=== PATIENT | female | born 1940 | race Caucasian/White ===

== ENCOUNTER → 2017-08-21 | Outpatient (CLI) | payer MEDICARE ==
--- NOTE | 2017-08-21 11:17 | BD ---
EXAMINATION TYPE: MG DEXA axial skeleton. DATE OF EXAM: 08/21/2017 COMPARISON: NONE CLINICAL HISTORY: Postmenopausal female. Osteoporosis screening. Height: 60 Weight: 124 FRAX RISK QUESTIONS: Alcohol (3 or more units per day): NO Family History (Parent hip fracture): no Glucocorticoids (More than 3mos): no (Ex: prednisone, prednisolone, methylprednisolone, dexamethasone, and hydrocortisone). History of Fracture in Adulthood: none known Secondary Osteoporosis: 1. Type 1 Diabetes: no 2. Hyperthyroidism: no 3. Menopause before 45: insure 4. Malnutrition: no 5. Chronic liver disease: no Rheumatoid Arthritis: maybe Current Tobacco Use: no RISK FACTORS HISTORY OF: Surgery to Spine/Hip(right/left)/Wrist (right/left): no Family History of Osteoporosis: unknown Active: no Diet low in dairy products/other sources of calcium: yes Postmenopausal woman: yes Lost more than 2 inches in height since high school: yes Frequent falls: yes Poor Health: yes Hyperparathyroidism: no Adrenal Insufficiency: no MEDICATIONS: no medication list available/ pt doesn't know/caregiver didn't have list Additional History: EXAM MEASUREMENTS: Bone mineral densitometry was performed using the [employer] System. Bone mineral density as measured about the Lumbar spine is: ----- L1-L4(G/cm2): 0.945 T Score Values are as follows: ----- L2: -2.0 ----- L3: -1.8 ----- L4: -1.7 ----- L1-L4: -2.0 Bone mineral density baseline Bone mineral density about the R hip (g/cm2): 0.704 Bone mineral density about the L hip (g/cm2): 0.704 T Score values are as follows: -----R Neck: -2.4 -----L Neck: -2.4 -----R Total: -2.8 -----L Total: -2.9 Bone mineral density : baseline IMPRESSION: Osteoporosis (T Score less than -2.5) as noted by T Score values at the bilateral hips There is increased fracture risk and therapy is usually indicated based on age. Re-Screen 1-2 years. NOTE: T-SCORE=SD OF THE YOUNG ADULT MEAN.
== END | disposition home or self-care (01) ==
LOC: RADBDWWP 08:33 → EEVIPCON 08:40
PROVIDERS: ATTEND Family Medicine
DX: M85.851 Other specified disorders of bone density and structure, right thigh (principal); M85.852 Other specified disorders of bone density and structure, left thigh; M19.90 Unspecified osteoarthritis, unspecified site
CPT/HCPCS: 77080

== ENCOUNTER 2019-01-14 11:20 | Emergency (ER) | payer MEDICARE ==
[2019-01-14 12:35] LABS: Basophils % (A) 1 %; Eosinophils # (A) 0.1 k/uL (0-0.7); Eosinophils % (A) 1 %; Lymphocytes # (A) 0.8 k/uL (1.0-4.8); Lymphocytes % (A) 17 %; MCH 29.9 pg (25.0-35.0); MCHC 32.5 g/dL (31.0-37.0); Mean Platelet Volume 7.9; Monocytes # (A) 0.2 k/uL (0-1.0); Monocytes % (A) 3 %; Neutrophils # (A) 3.6 k/uL (1.3-7.7); Neutrophils % (A) 77 %; Platelet Count 246 k/uL (150-450); RBC 4.67 m/uL (3.80-5.40); RDW 14.6 % (11.5-15.5); WBC 4.7 k/uL (3.8-10.6)
[2019-01-14 12:46] LABS: Albumin 4.5 g/dL (3.5-5.0); Calcium 10.1 mg/dL (8.4-10.2); Potassium 4.6 mmol/L (3.5-5.1); Total Bilirubin 0.7 mg/dL (0.2-1.3); Total Protein 7.9 g/dL (6.3-8.2)
--- NOTE | 2019-01-14 12:57 | XR ---
EXAMINATION TYPE: XR KUB DATE OF EXAM: 01/14/2019 12:42 PM CLINICAL HISTORY: Abdominal pain TECHNIQUE: Single upright image of the abdomen is obtained. COMPARISON: None. FINDINGS: Scattered gas is seen in nondilated small bowel loops. Gas and fecal material is seen in no ndilated colon. Severe fecal stasis is seen with colonic fecal burden most pronounced in the right he micolon and rectosigmoid junction. The lung bases are clear and the osseous structures are intact. Th ere is generalized osseous demineralization. Mild levoscoliosis of the thoracolumbar junction is seen with dextroscoliosis of the lumbosacral junction. Moderate degenerative changes of the femoral aceta bular joints are present as joint space narrowing and acetabular sclerosis. IMPRESSION: Severe fecal stasis in an overall nonobstructive bowel gas pattern.
--- NOTE | 2019-01-14 13:47 | ED ---
General Adult HPI - General Chief complaint: Abdominal Pain Stated complaint: constipation Time Seen by Provider: 01/14/19 11:40 Source: patient, family Mode of arrival: wheelchair - History of Present Illness Initial comments: 78 year old female advanced dementia as well as Parkinson's presenting today with guarding for chief complaint constipation. They state the patient has had headaches in a bowel movement in over a month. He states she's had small ones here and there. They deny patient grimacing or complaining of pain. Patient appears well upon arrival. Family practitioner was concerned about structural and was told to present to the emergency department for further evaluation. Upon arrival patient's vital signs within acceptable limits. No other complaints from guardian. No vomiting noted or fevers. - Related Data Previous Rx's Medication Instructions Recorded Glycerin Adult Suppository 1 each RECTAL DAILY 30 Days #30 01/14/19 supp Polyethylene Glycol 3350 [Miralax] 17 gm PO DAILY 30 Days #30 packet 01/14/19 Allergies Allergy/AdvReac Type Severity Reaction Status Date / Time No Known Allergies Allergy Verified 01/14/19 11:31 Review of Systems ROS Statement: Those systems with pertinent positive or pertinent negative responses have been documented in the HPI. ROS Other: All systems not noted in ROS Statement are negative. Past Medical History Past Medical History: Dementia Additional Past Medical History / Comment(s): frandy History of Any Multi-Drug Resistant Organisms: None Reported Past Surgical History: No Surgical Hx Reported Smoking Status: Former smoker Past Alcohol Use History: None Reported Past Drug Use History: None Reported General Exam - General Exam Comments Initial Comments: General: The patient is awake and alert, in no distress, and does not appear acutely ill. Eye: +3 mm pupils are equal, round and reactive to light, extra-ocular movements are intact. No nystagmus. There is normal conjunctiva bilaterally. No signs of icterus. Ears, nose, mouth and throat: There are moist mucous membranes and no oral lesions. Neck: The neck is supple, there is no tenderness or JVD. Cardiovascular: There is a regular rate and rhythm. No murmur, rub or gallop is appreciated. Respiratory: Lungs are clear to auscultation, respirations are non-labored, breath sounds are equal. No wheezes, stridor, rales, or rhonchi. Gastrointestinal: Soft, slightly-distended, non-tender appearing abdomen without masses or organomegaly noted. There is no rebound or guarding present. No CVA tenderness. Bowel sounds are unremarkable. Musculoskeletal: Normal ROM, no tenderness. Strength 5/5. Sensation intact. Pulses equal bilaterally 2+. Neurological: A&O x 0. CN II-XII intact grossly, There are no obvious motor or sensory deficits. Coordination appears grossly intact. Speech is normal. Walking around well, without ataxia. Skin: Skin is warm and dry and no rashes or lesions are noted. Psychiatric: Smiling appearing pleasantly demented Course Vital Signs 01/14/19 01/14/19 01/14/19 11:26 12:30 13:30 Temperature Pulse Rate 102 H 81 90 Respiratory 20 Rate Blood Pressure 141/79 163/98 166/92 O2 Sat by Pulse 93 L Oximetry 01/14/19 01/14/19 01/14/19 13:57 14:00 15:57 Temperature 98.7 F Pulse Rate 71 92 Respiratory 18 Rate Blood Pressure 169/95 169/95 O2 Sat by Pulse 98 Oximetry 01/14/19 01/14/19 01/14/19 17:20 18:51 19:43 Temperature 98.0 F Pulse Rate 118 H 106 H Respiratory 20 20 Rate Blood Pressure 149/65 129/85 121/54 O2 Sat by Pulse 99 99 Oximetry Medical Decision Making - Medical Decision Making A well-appearing pleasantly demented 78-year-old female. Setting with guarding for constipation. No noted large bowel movements in over a month. Patient has severe fecal stasis on x-ray. However neck exam there is no palpable stool in the rectum. CT revealed no evidence of small bowel obstruction or acute findings. Discussed findings with guardian. Multiple attempts at enema performed. Patient had very large bowel movement. Patient appears well. Patient be discharged home with bowel regime. Stress case with Dr. Coffey prior to patient's discharge she was agreeable care plan. - Lab Data Result diagrams: 01/14/19 12:10 01/14/19 12:10 Lab Results 01/14/19 01/14/19 01/14/19 Range/Units 12:10 12:10 15:23 WBC 4.7 (3.8-10.6) k/uL RBC 4.67 (3.80-5.40) m/uL Hgb 14.0 (11.4-16.0) gm/dL Hct 43.0 (34.0-46.0) % MCV 92.0 (80.0-100.0) fL MCH 29.9 (25.0-35.0) pg MCHC 32.5 (31.0-37.0) g/dL RDW 14.6 (11.5-15.5) % Plt Count 246 (150-450) k/uL Neutrophils % 77 % Lymphocytes % 17 % Monocytes % 3 % Eosinophils % 1 % Basophils % 1 % Neutrophils # 3.6 (1.3-7.7) k/uL Lymphocytes # 0.8 L (1.0-4.8) k/uL Monocytes # 0.2 (0-1.0) k/uL Eosinophils # 0.1 (0-0.7) k/uL Basophils # 0.0 (0-0.2) k/uL Sodium 143 (137-145) mmol/L Potassium 4.6 (3.5-5.1) mmol/L Chloride 106 (98-107) mmol/L Carbon Dioxide 24 (22-30) mmol/L Anion Gap 13 mmol/L BUN 46 H (7-17) mg/dL Creatinine 0.81 (0.52-1.04) mg/dL Est GFR (CKD-EPI)AfAm 82 (>60 ml/min/1.73 sqM) Est GFR (CKD-EPI)NonAf 71 (>60 ml/min/1.73 sqM) Glucose 103 H (74-99) mg/dL Calcium 10.1 (8.4-10.2) mg/dL Total Bilirubin 0.7 (0.2-1.3) mg/dL AST 33 (14-36) U/L ALT 22 (9-52) U/L Alkaline Phosphatase 114 (38-126) U/L Total Protein 7.9 (6.3-8.2) g/dL Albumin 4.5 (3.5-5.0) g/dL Amylase 85 (30-110) U/L Lipase 68 (23-300) U/L Urine Color Yellow Urine Appearance Clear (Clear) Urine pH 5.5 (5.0-8.0) Ur Specific [place] 1.039 H (1.001-1.035) Urine Protein Negative (Negative) Urine Glucose (UA) Negative (Negative) Urine Ketones Negative (Negative) Urine Blood Negative (Negative) Urine Nitrite Negative (Negative) Urine Bilirubin Negative (Negative) Urine Urobilinogen <2.0 (<2.0) mg/dL Ur Leukocyte Esterase Negative (Negative) Disposition Clinical Impression: Constipation Disposition: HOME SELF-CARE Condition: Good Instructions (If sedation given, give patient instructions): Constipation (ED), High Fiber Diet (ED) Additional Instructions: Please use medication as discussed. Please follow-up with family doctor in the next 2 days. Please return to emergency room if the symptoms increase or worsen or for any other concerns. Prescriptions: Glycerin Adult Suppository 1 each RECTAL DAILY 30 Days #30 supp Polyethylene Glycol 3350 [Miralax] 17 gm PO DAILY 30 Days #30 packet Is patient prescribed a controlled substance at d/c from ED?: No Referrals: Issac Molina DO [Primary Care Provider] - 1-2 days Time of Disposition: 19:21
--- NOTE | 2019-01-14 14:58 | CT ---
EXAMINATION TYPE: CT abdomen pelvis w con DATE OF EXAM: 01/14/2019 COMPARISON: NONE HISTORY: 78-year-old female with pain, constipation per requisition TECHNIQUE: Contiguous axial scanning of the abdomen and pelvis following administration of 100 ml Iso juan carlos 300 IV contrast. Delayed images through the kidneys and coronal/sagittal reconstructions perform ed. CT DLP: 724.9 mGycm Automated exposure control for dose reduction was used. FINDINGS: Heart normal size without pericardial effusion. Lung bases clear without pleural effusion. Small 8 mm cyst left liver lobe. No biliary ductal dilatation. Portal venous system appears patent. The gallbladder is markedly hydropic measuring up to 5.6 cm wide. Adrenal glands, kidneys, and pancreas show no gross abnormality. A few punctate calcified granulomas in the spleen. There is patient motion and limited intra-abdominal fat limiting assessment. Very large stool burden is present. No dilated small bowel, free fluid, or free air. Moderate atherosclerotic calcifications infrarenal abdominal aorta and iliac arteries. Prominent distention of the urinary bladder to 11.4 cm. There is a left adnexal cystic structure measuring 3.9 cm. This can be further evaluated with pelvic ultrasound to further characterize. There is hard stool material distending the rectum up to 8.9 cm wide. Uterus is suspected to be surgically absent. Bones: Degenerative scoliosis and osteopenia. IMPRESSION: 1. LIMITED ASSESSMENT DUE TO PATIENT MOTION, PAUCITY OF INTRA-ABDOMINAL FAT, AND SEVERE STOOL BURDEN. 2. ALONG WITH THE SEVERE STOOL BURDEN, THERE IS HARD STOOL MATERIAL DISTENDING THE RECTUM UP TO NEARL Y 9 CM WIDE. FINDINGS SUGGEST FECAL IMPACTION. 3. NONEMERGENT FOLLOW-UP PELVIC ULTRASOUND RECOMMENDED TO ASSESS THE 3.9 CM LEFT ADNEXAL CYST. ULTRAS [facility]UND CAN PROVIDE FURTHER TISSUE CHARACTERIZATION AND PROVIDE FOLLOW-UP GUIDELINES. 4. MARKEDLY HYDROPIC GALLBLADDER MAY BE DUE TO FASTING STATE. IF THERE IS RIGHT UPPER QUADRANT PAIN OR CONCERN FOR EARLY ACUTE CHOLECYSTITIS, FOLLOW-UP ULTRASOUND OR HIDA SCAN
[2019-01-14 15:41] LABS: Appearance,Urine Clear (Clear); Bilirubin,Urine Negative (Negative); Blood,Urine Negative (Negative); Color,Urine Yellow; Glucose,Urine (UA) Negative (Negative); Ketones,Urine Negative (Negative); Leukocyte Esterase,Urine Negative (Negative); Nitrite,Urine Negative (Negative); PH, Urine 5.5 (5.0-8.0); Protein,Urine Negative (Negative); Specific Gravity,Urine 1.039 (1.001-1.035); Urobilinogen,Urine <2.0 mg/dL (<2.0)
[2019-01-14] MEDS ORDERED: LORazepam 2 MG/ML INJ IV STA (17:00)
[2019-01-14 19:07] VITALS: RESP 20
[2019-01-14 19:45] VITALS: BP 121/54; PULSE 106; TEMP 98
== END 2019-01-14 19:55 | disposition home or self-care (01) ==
LOC: EC 11:20
DX: K59.00 Constipation, unspecified (principal); R51 Headache; G20 Parkinson's disease; F02.80 Dementia in other diseases classified elsewhere, unspecified severity, without behavioral disturbance, psychotic disturbance, mood disturbance, and anxiety; Z87.891 Personal history of nicotine dependence
CPT/HCPCS: 36415; 80053; 82150; 83690; 85025; 81003; 74018; 74177; 99284; 51701; 96374; J2060; Q9967